=== PATIENT | female | born 1965 | race African-American/Black ===

== ENCOUNTER 2025-07-17 09:30 | Inpatient (IN) | payer SELFPAY ==
[~2025-07-17] VITALS: Ht 170.2 cm; Wt 65.0 kg
--- NOTE | 2025-07-17 12:31 | ED.PDOC ---
History of Present Illness HPI Comments 59-year-old female presents to the ER with prior medical history of diabetes neuropathy and a chief complaint of lower extremity numbness. Patient reports on having increased numbness on her feet with a wound on her left thigh of no drain for one week, in his ambulatory. Patient notes the she has been waking up with a headache recently and also has a lump on the right side of her neck. Patient has a social history of marijuana use. Denies chills, fever, N/V/D, SOB, CP. No other associated symptoms, modifiers, recent injuries or sick contacts present at this time. Chief Complaint: Lower Extremity Time Seen by MD: 11:50 Reviewed Notes: Nurses Notes, Medications, Allergies Allergies: Coded Allergies: Enalapril (Verified Allergy, Mild, 07/17/25) Information Source: Patient Mode of Arrival: Ambulatory Severity: Moderate Timing: Came on: Gradually Duration: Since onset Prehospital treatment: None Past Medical History PAST MEDICAL HISTORY: DM Past Medical History (Other): Neuropathy Surgical History: Denies all surgeries Family History Family History: Reviewed,noncontributory to illness, Unknown Social History Smoker: Non-Smoker Alcohol: Denies ETOH Use Drugs: Denies Drug Use Lives In: Home Constitutional: reports: others (Increased numbness on her bilateral feet come to the left thigh); denies: chills, diaphoresis, fatigue, fever, malaise, sweats, weakness EENTM: denies: blurred vision, double vision, ear bleeding, ear discharge, ear drainage, ear pain, ear ringing, eye pain, eye redness, hearing loss, mouth pain, mouth swelling, nasal discharge, nose bleeding, nose congestion, nose pain, photophobia, tearing, throat pain, throat swelling, voice changes, others Respiratory: denies: cough, hemoptysis, orthopnea, SOB at rest, shortness of breath, SOB with excertion, stridor, wheezing, others Cardiovascular: denies: chest pain, dizzy spells, diaphoresis, Dyspnea on exertion, edema, irregular heart beat, left arm pain, lightheadedness, palpitations, PND, syncope, others Gastrointestinal: denies: abdomen distended, abdominal pain, blood streaked bowels, constipated, diarrhea, dysphagia, difficulty swallowing, hematemesis, melena, nausea, poor appetite, poor fluid intake, rectal bleeding, rectal pain, vomiting, others Genitourinary: denies: abnormal vagina bleeding, burning, dyspareunia, dysuria, flank pain, frequency, hematuria, incontinence, pain, , vagina d ischarge, urgency, others Neurological: reports: headache; denies: dizziness, fainting, left sided numbness, left sided weakness, numbness, paresthesia, pre-existing deficit, right sided numbness, right sided weakness, seizure, speech problems, tingling, tremors, weakness, others Musculoskeletal: denies: back pain, gout, joint pain, joint swelling, muscle pain, muscle stiffness, neck pain, others Integumetry: denies: bruises, change in color, change in hair/nails, dryness, laceration, lesions, lumps, rash, wounds, others Allergic/Immunocompromised: denies: Difficulty Healing, Frequent Infections, Hives, Itching, others Hematologic/Lymphatic: denies: anemia, blood clots, easy bleeding, easy bruising, swollen glands, others Endocrine: denies: excessive hunger, excessive sweating, excessive thirst, excessive urination, flushing, intolerance to cold, intolerance to heat, unexplained weight gain, unexplained weight loss, others Psychiatric: denies: anxiety, bipolar disorder, depression, hopeless, panic disorder, schizophrenia, sleepless, suicidal, others All Other Systems: Reviewed and Negative Physical Exam General Appearance: Moderate Distress, Normal HEENT: Normal ENT Inspection, Pharynx Normal, TMs Normal Neck: Full Range of Motion, Non-Tender, Normal, Normal Inspection Respiratory: Chest Non-Tender, Lungs Clear, No Accessory Muscle Use, No Respi ratory Distress, Normal Breath Sounds Cardiovascular: No Edema, No JVD, No Murmur, No Gallop, Normal Peripheral Pulses, Regular Rate/Rhythm Breast Exam: Deferred Gastrointestinal: No Organomegaly, Non Tender, No Pulsatile Mass, Normal Bowel Sounds, Soft Genitalia: Deferred Pelvic: Deferred Rectal: Deferred Extremities: No calf tenderness, Normal capillary refill, Normal inspection, Normal range of motion, Non-tender, No pedal edema Musculoskeletal : Apperance: Normal Neurologic: Alert, hog ringer II-XII nml as Tested, No Motor Deficits, Normal Affect, Normal Mood, No Sensory Deficits Cerebellar Function: Normal Reflexes: Normal Skin: Dry, Normal Color, Warm Peripheral Pulses: 3+ Radial (R), 3+ Radial (L) Lymphatic: No Adenopathy Was a procedure done? Was a procedure done?: No Differential Dx Considerations may include: Anemia Electrolyte imbalance X-Ray, Labs, Meds, VS Vital Signs Date Time Temp Pulse Resp B/P (MAP) Pulse Ox O2 Delivery O2 Flow Rate FiO2 07/17/25 14:48 98.0 73 17 158/82 (107) 97 98.0 07/17/25 14:48 73 17 97 Room Air 07/17/25 09:31 97.3 65 14 147/90 97 97.3 Lab Test 07/17/25 13:44 07/17/25 12:55 Range/Units Urine Color Light-yellow Yellow Urine Clarity Clear Clear Urine pH 6.0 5.0-9.0 Urine Specific [place] 1.014 1.001-1.035 Urine Protein 2+ H Negative Urine Ketones Negative Negative Urine Blood Trace H Negative /uL Urine Nitrite Negative Negative Urine Bilirubin Negative Negative Urine Urobilinogen Normal Negative mg/dL Urine Leukocyte Esterase 2+ Negative /uL Urine RBC 3 0 - 4 /hpf Urine Microscopic WBC 9 H 0-5 /HPF Urine Squamous Epithelial Cells Few <5 /hpf Urine Bacteria Few H None Seen /hpf Urine Glucose Normal Normal mg/dL White Blood Count 4.9 4.4-10.8 10^3/uL Red Blood Count 4.36 4.0-5.20 10^6/uL Hemoglobin 14.2 12.2-16.2 g/dL Hematocrit 42.3 36.0-46.0 % Mean Corpuscular Volume 97.1 80.0-100.0 fL Mean Corpuscular Hemoglobin 32.6 H 28.0-32.0 pg Mean Corpuscular Hemoglobin Concent 33.6 32.0-36.0 g/dL Red Cell Distribution Width 13.7 11.8-14.3 % Platelet Count 222 140-450 10^3/uL Mean Platelet Volume 7.8 6.9-10.8 fL Neutrophils (%) (Auto) 41.1 37.0-80.0 % Lymphocytes (%) (Auto) 40.7 10.0-50.0 % Monocytes (%) (Auto) 15.0 H 0.0-12.0 % Eosinophils (%) (Auto) 2.8 0.0-7.0 % Basophils (%) (Auto) 0.4 0.0-2.0 % Neutrophils # (Auto) 2.0 1.6-8.6 10 ^3/uL Lymphocytes # (Auto) 2.0 0.4-5.4 10 ^3/uL Monocytes # (Auto) 0.7 0-1.3 10 ^3/uL Eosinophils # (Auto) 0.1 0-0.8 10 ^3/uL Basophils # (Auto) 0 0-0.2 10 ^3/uL Nucleated Red Blood Cells 0.2 % Sodium Level 144 136-145 mmol/L Potassium Level 4.2 3.5-5.1 mmol/L Chloride Level 108 H 98-107 mmol/L Carbon Dioxide Level 27 20-31 mmol/L Anion Gap 9 5-15 Blood Urea Nitrogen 25 H 9-23 mg/dL Creatinine 1.51 H 0.550-1.02 mg/dL Glomerular Filtration Rate Calc 40 >90 mL/min BUN/Creatinine Ratio 16.6 10.0-20.0 Serum Glucose 138 H 74-106 mg/dL Calcium Level 9.7 8.7-10.4 mg/dL Troponin I High Sensitivity 63 *H </=34 ng/L Patient alert. Complaining of numbness tingling. Cardiac marker elevated. Vitals stable. Answering questions. Blood sugar slightly elevated. Was given Lovenox. Urinalysis shows UTI. Blood pressure elevated. Risk factors for coronary artery disease. Echocardiogram. Cardiac consultation. Explained to the patient. Continue monitoring. Time of 1ST Reevaluation: 12:20 Reevaluation 1ST: Unchanged Patient Education/Counseling: Diagnosis, Treatment, Prognosis Family Education/Counseling: No Family Present SEPSIS Sepsis Screen Date sepsis recognized/suspect: Jul 17, 2025 Time Sepsis recognized/suspect: 932 Recent Procedure: No Respiratory Rate >20: No Heart Rate >90: No Temp<36 C (96.8 F) or >38.3 C: No SBP <90 or MAP <65 mmHG: No New Acute Mental Status Change: No Is the patient on CPAP, BIPAP,: No Vital Signs Date Time Temp Pulse Resp B/P (MAP) Pulse Ox O2 Delivery O2 Flow Rate FiO2 07/17/25 14:48 98.0 73 17 158/82 (107) 97 98.0 07/17/25 14:48 73 17 97 Room Air 07/17/25 09:31 97.3 65 14 147/90 97 97.3 Laboratory Tests Test 07/17/25 12:55 White Blood Count 4.9 10^3/uL (4.4-10.8) Departure 1 Departure Time of Disposition: 17:31 Impression: Primary Impression: Uncontrolled diabetes mellitus Qualified Codes: E13.65 - Other specified diabetes mellitus with hyperglycemia Additional Impressions: Hypertensive urgency Demand ischemia Urinary tract infection Qualified Codes: N30.00 - Acute cystitis without hematuria Disposition: ADMITTED INPATIENT Admit to: Med Surg Condition: Guarded Critical Care Note Critical Care Time?: No Stability Stability form required: No Heart Score Heart Score: Heart Score Response (Comments) Value History Slightly Suspicious 0 EKG Normal 0 Age 45-64 1 Risk Factors >3 or Hx ASHD 2 Troponin 1-2 x's Normal limit 1 Total 4 I personally scribed for DIMITRIOS TORRES MD ([email or web address]) on 07/17/25 at 12:31. Electronically submitted by Familia Alvarado ([email or web address]). DIMITRIOS TORRES MD Jul 17, 2025 12:31
[2025-07-17 13:06] LABS: Hematocrit 42.3 % (36.0-46.0); Hemoglobin 14.2 g/dL (12.2-16.2); Mean Corpuscular Hemoglobin 32.6 pg (28.0-32.0); Mean Corpuscular Volume 97.1 fL (80.0-100.0); Nucleated Red Blood Cells % 0.2 %
[2025-07-17 13:13] LABS: Potassium 4.2 mmol/L (3.5-5.1); Sodium 144 mmol/L (136-145)
[2025-07-17 13:14] LABS: Anion Gap 9 (5-15); Carbon Dioxide 27 mmol/L (20-31)
[2025-07-17 13:15] LABS: Calcium 9.7 mg/dL (8.7-10.4)
[2025-07-17 13:19] LABS: BUN/Creatinine Ratio 16.6 (10.0-20.0); Chloride 108 mmol/L (98-107)
[2025-07-17 13:21] LABS: Blood Urea Nitrogen 25 mg/dL (9-23); Glucose 138 mg/dL (74-106)
[2025-07-17 14:13] LABS: Urine Protein, UAD 2+ (Negative)
[2025-07-17] MEDS: InsuLIN REG 1unit/0.01ml Soln (100units/ml) IV ONE (17:45)
[2025-07-17] MEDS: SODIUM CHLORIDE 0.9% 1,000 ML IV ONE ×2 (17:45)
[2025-07-17] MEDS: cefTRIAXone 1GM/50ML D5W 50 ML IV ONE (17:45)
[2025-07-17] MEDS ORDERED: ACETAMINOPHEN 325 MG TAB PO PRN (23:00)
[2025-07-17] MEDS ORDERED: DEXTROSE (50%) 50ML SYRG IV PRN (23:00)
--- NOTE | 2025-07-17 23:13 | DVHHP2 ---
History of Present Illness History of Present Illness This is a 59-year-old female with a past medical history of type 2 diabetes and diabetic neuropathy, HTN, HLD who presents to the Emergency Department with a chief complaint of lower extremity numbness for 2 years. The patient reports progressively worsening numbness in both feet over the past week, along with a wound on her left thigh which is any history daily red, swollen, painful, local raise of temperature but shown no drainage and decreases size. She is ambulatory and reports moderate severity of symptoms. Her social history is notable for marijuana use. She denies chills, fever, nausea, vomiting, diarrhea, shortness of breath, chest pain, or other associated symptoms. There are no recent injuries, sick contacts, or symptom modifiers. No prehospital treatment was administered. Patient also stated increased frequency of micturition recently but no dysuria, hematuria or lower abdominal pain. Patient heparin never seen by director of employer services. Past Medical History (Other): Neuropathy, type 2 diabetes mellitus, HTN, HLD, x 03 Surgical History: x 03, cholecystectomy Family History: CAD-mother Smoker: No cigarette smoking, smokes marijuana occasionally and last smoked yesterday Alcohol: Denies ETOH Use Drugs: Denies Drug Use Lives In: Home PCP: Not selected Allergy: Enalapril Review of Systems Constitutional: Yes: Malaise; No: Fever, Chills, Sweats, Weakness, Other Eyes: No: Pain, Vision change, Conjunctivae inflammation, Eyelid inflammation, Other, Redness ENT: No: Ear pain, Ear discharge, Nose pain, Nose discharge, Nose congestion, Mouth pain, Mouth swelling, Throat pain, Throat swelling, Other Respiratory: No: Cough, Dry, Shortness of breath, SOB with excertion, Wheezing, Hemoptysis, Pleuritic Pain, Sputum, Wheezing, Other Cardiovascular: No: Chest Pain, Palpitations, Orthopnea, Paroxysmal Noc. Dyspnea, Edema, Lt Headedness, Other Gastrointestinal: No: Nausea, Vomiting, Abdominal Pain, Diarrhea, Constipation, Melena, Hematochezia, Other Genitourinary: No Dysuria, No Frequency, No Incontinence, No Hematuria, No Retention, No Other Musculoskeletal: No: other, neck pain, shoulder pain, arm pain, back pain, hand pain, leg pain, foot pain Skin: Other (Swelling front of left thigh); No: Rash, Lesions, Jaundice, Bruising Neurological: Other (Tingling sensation bilateral lower extremity); No: Weakness, Numbness, Incoordination, Change in speech, Confusion, Seizures Allergies: Coded Allergies: Enalapril (Verified Allergy, Mild, 07/17/25) Medications Current Medications Medications Dose Ordered Sig/Noah Route Start Time Stop Time Status Last Admin Dose Admin Acetaminophen 650 mg Q6HP PRN PO 07/17/25 23:00 Gabapentin 300 mg DAILY PO 07/18/25 10:00 Diagnostic Test (Pha) 1 strip ACHS 07/18/25 07:00 Insulin Human Regular ACHS SC 07/18/25 07:00 Dextrose 50 ml UD PRN IV 07/17/25 23:00 Atorvastatin Calcium 20 mg HS PO 07/18/25 22:00 Ceftriaxone Sodium 50 ml @ 100 mls/hr Q24H IV 07/18/25 21:00 Sodium Chloride 1,000 ml @ 100 mls/hr Q10H IV 07/17/25 23:00 Exam Vital Signs Vital Signs Date Time Temp Pulse Resp B/P (MAP) Pulse Ox O2 Delivery O2 Flow Rate FiO2 07/17/25 22:00 59 12 129/63 (85) 96 07/17/25 19:30 97.9 97.9 07/17/25 14:48 Room Air General Appearance: Oriented X3, Cooperative, mild distress HEENT: Atraumatic, PERRLA, EOMI Respiratory: Clear to auscultation, Normal air movement Cardiovascular: Regular rate, Normal S1, Normal S2 Abdominal: Normal bowel sounds, Soft, No tenderness Extremities: No clubbing, No cyanosis, No edema, Normal pulses, No tenderness/swelling Skin: No rashes, No breakdown Neuro: Normal gait, Normal speech, Strength at 5/5 X4 ext, Normal tone, Other (Sensation decreased bilateral lower extremity) Labs/Xrays Labs Test 07/17/25 18:57 07/17/25 13:44 07/17/25 12:55 Range/Units POC Glucose 113 H 70-106 mg/dl Urine Color Light-yellow Yellow Urine Clarity Clear Clear Urine pH 6.0 5.0-9.0 Urine Specific [place] 1.014 1.001-1.035 Urine Protein 2+ H Negative Urine Ketones Negative Negative Urine Blood Trace H Negative /uL Urine Nitrite Negative Negative Urine Bilirubin Negative Negative Urine Urobilinogen Normal Negative mg/dL Urine Leukocyte Esterase 2+ Negative /uL Urine RBC 3 0 - 4 /hpf Urine Microscopic WBC 9 H 0-5 /HPF Urine Squamous Epithelial Cells Few <5 /hpf Urine Bacteria Few H None Seen /hpf Urine Glucose Normal Normal mg/dL White Blood Count 4.9 4.4-10.8 10^3/uL Red Blood Count 4.36 4.0-5.20 10^6/uL Hemoglobin 14.2 12.2-16.2 g/dL Hematocrit 42.3 36.0-46.0 % Mean Corpuscular Volume 97.1 80.0-100.0 fL Mean Corpuscular Hemoglobin 32.6 H 28.0-32.0 pg Mean Corpuscular Hemoglobin Concent 33.6 32.0-36.0 g/dL Red Cell Distribution Width 13.7 11.8-14.3 % Platelet Count 222 140-450 10^3/uL Mean Platelet Volume 7.8 6.9-10.8 fL Neutrophils (%) (Auto) 41.1 37.0-80.0 % Lymphocytes (%) (Auto) 40.7 10.0-50.0 % Monocytes (%) (Auto) 15.0 H 0.0-12.0 % Eosinophils (%) (Auto) 2.8 0.0-7.0 % Basophils (%) (Auto) 0.4 0.0-2.0 % Neutrophils # (Auto) 2.0 1.6-8.6 10 ^3/uL Lymphocytes # (Auto) 2.0 0.4-5.4 10 ^3/uL Monocytes # (Auto) 0.7 0-1.3 10 ^3/uL Eosinophils # (Auto) 0.1 0-0.8 10 ^3/uL Basophils # (Auto) 0 0-0.2 10 ^3/uL Nucleated Red Blood Cells 0.2 % Sodium Level 144 136-145 mmol/L Potassium Level 4.2 3.5-5.1 mmol/L Chloride Level 108 H 98-107 mmol/L Carbon Dioxide Level 27 20-31 mmol/L Anion Gap 9 5-15 Blood Urea Nitrogen 25 H 9-23 mg/dL Creatinine 1.51 H 0.550-1.02 mg/dL Glomerular Filtration Rate Calc 40 >90 mL/min BUN/Creatinine Ratio 16.6 10.0-20.0 Serum Glucose 138 H 74-106 mg/dL Calcium Level 9.7 8.7-10.4 mg/dL Troponin I High Sensitivity 63 *H </=34 ng/L SEPSIS Sepsis Screen Date sepsis recognized/suspect: Jul 17, 2025 Time Sepsis recognized/suspect: 932 Recent Procedure: No Respiratory Rate >20: No Heart Rate >90: No Temp<36 C (96.8 F) or >38.3 C: No SBP <90 or MAP <65 mmHG: No New Acute Mental Status Change: No Is the patient on CPAP, BIPAP,: No Physician Orders Sodium Chloride 0.9% (07/17/25 17:45) Admit (07/17/25 22:50) Code Status (07/17/25 22:50) Acetaminophen Tablet (Tylenol Tablet) (07/17/25 23:00) Notify Md Of Changes From Base (07/17/25 22:50) Gabapentin Capsule (Neurontin Capsule) (07/18/25 10:00) Glucose Blood (Accu-Chek Comfort Curve T (07/18/25 07:00) Insulin R (Human) (Insulin R) (07/18/25 07:00) Dextrose 50% Syringe (07/17/25 23:00) Atorvastatin (Lipitor) (07/18/25 22:00) Ceftriaxone 1gm/50ml D5w (Rocephin) (07/18/25 21:00) Sodium Chloride 0.9% (07/17/25 23:00) Consistent Carb(Ccho)Diabetes (07/18/25 Breakfast) Troponin-I Hs (07/17/25 23:03) Troponin-I Hs (07/18/25 00:03) Troponin-I Hs (07/18/25 02:03) Vital Signs Date Time Temp Pulse Resp B/P (MAP) Pulse Ox O2 Delivery O2 Flow Rate FiO2 07/17/25 22:00 59 12 129/63 (85) 96 07/17/25 20:00 55 07/17/25 19:30 175/96 07/17/25 19:30 97.9 66 14 175/96 (122) 99 97.9 07/17/25 18:30 97.8 69 18 186/94 (124) 97 97.8 07/17/25 17:45 186/94 Laboratory Tests Test 07/17/25 12:55 White Blood Count 4.9 10^3/uL (4.4-10.8) Medications Medications Dose Ordered Sig/Noah Route Start Time Stop Time Status Last Admin Dose Admin Ceftriaxone Sodium 50 ml @ 100 mls/hr ONCE ONCE IV 07/17/25 17:45 07/17/25 18:14 DC 07/17/25 17:45 100 MLS/HR Clonidine HCl 0.2 mg ONCE ONCE PO 07/17/25 17:45 07/17/25 17:46 DC 07/17/25 17:45 0.2 MG Sodium Chloride 1,000 ml @ 150 mls/hr Q6H40M ONCE IV 07/17/25 17:45 07/18/25 00:24 07/17/25 17:45 150 MLS/HR Sodium Chloride 1,000 ml @ 1,000 mls/hr Q1H ONCE IV 07/17/25 17:45 07/17/25 18:44 DC 07/17/25 17:45 1,000 MLS/HR Assessment/Plan Assessment/Plan UNCONTROLLED TYPE 2 DIABETES MELLITUS WITH HYPERGLYCEMIA AND DIABETIC NEUROPATHY Patient came with lower extremity tingling sensation, increased frequency of micturition In ER, received regular insulin, NSS, ceftriaxone CMP blood glucose shows 138 Gabapentin 300 mg p.o. daily Insulin sliding scale Metformin 1000 b.i.d. home medicine Monitor blood sugar Hemoglobin A1c ordered Vitamin B12, vitamin-D, TSH NSS 100 cc/hour Urinary tract infection UA shows blood trace, leukocyte esterase 2+, WBC 9, bacteria few NSS 100 cc/hour ceftriaxone 1 g IV daily CLAU due to vasomotor nephropathy serum creatinine 1.51, unknown baseline NSS 100 cc/hour avoid nephrotoxic drugs BNP will follow Hypertensive nephropathy HOME MEDICATION LOSARTAN HCTZ IT 100- 12.5 MG P.O. DAILY Hold for now due to CLAU Will resume a.m. team after left CVA Peripheral neuropathy gabapentin 600 mg p.o. as needed, home medicine start gabapentin 300 mg p.o. daily Mixed hyperlipidemia atorvastatin 20 mg p.o. daily lipid profile TYPE 2 NM DUE TO DEMAND ISCHEMIA Troponin level 63> 53> 59> 55 Diet: Diabetic diet GI prophylaxis: Pantoprazole 40 mg p.o. daily DVT prophylaxis: Heparin 56952 units sc q.12h Goals of care discussions, more than 29 minute spent With patient ,full code status. Case discussed with Dr. Will. Plan discussed with: Patient, Other (Nurse) My Orders Orders - LORRIE DAY Procedure Category Date Status Time Admit ADMIT 07/17/25 Transmitted 22:50 Code Status CODE 07/17/25 Transmitted 22:50 Acetaminophen Tablet PHA 07/17/25 In Process (Tylenol Tablet) 23:00 Notify Of Changes NEREYDA 07/17/25 In Process From Base 22:50 Gabapentin Capsule PHA 07/18/25 In Process (Neurontin Capsule) 10:00 Glucose Blood PHA 07/18/25 In Process (Accu-Chek Comfort 07:00 Insulin R (Human) PHA 07/18/25 In Process (Insulin R) 07:00 Dextrose 50% Syringe PHA 07/17/25 In Process 23:00 Atorvastatin (Lipitor) PHA 07/18/25 In Process 22:00 Ceftriaxone 1gm/50ml PHA 07/18/25 In Process D5w (Rocephin) 21:00 Sodium Chloride 0.9% PHA 07/17/25 In Process 23:00 Consistent DIET 07/18/25 Transmitted Carb(Ccho)Diabetes Breakfast Troponin-I Hs LAB 07/17/25 Logged 23:03 Troponin-I Hs LAB 07/18/25 Verified 00:03 Troponin-I Hs LAB 07/18/25 Verified 02:03 Date of Service: Jul 17, 2025 Billing Provider: ILYA WILL MD Common Visit Codes: [id number] INP/OBS CARE (HIGH) Secondary Visit Codes: [id number] CARE PLAN 30 MINUTES LORRIE DAY Jul 17, 2025 23:13
[2025-07-17] MEDS: SODIUM CHLORIDE 0.9% 1,000 ML IV SCH (23:18)
[2025-07-18] MEDS: InsuLIN REG 1unit/0.01ml Soln (100units/ml) SC SCH (07:00)
[2025-07-18] MEDS: ACCU-CHEK COMFORT CURVE STRIP VI SCH (07:07)
[2025-07-18 07:19] LABS: Alanine Aminotransferase 14 U/L (7-40); Albumin 4.2 g/dL (3.2-4.8); Anion Gap 12 (5-15); BUN/Creatinine Ratio 13.4 (10.0-20.0); Blood Urea Nitrogen 18 mg/dL (9-23); Calcium 9.0 mg/dL (8.7-10.4); Carbon Dioxide 24 mmol/L (20-31); Cholesterol 139 mg/dL (< 200); Potassium 4.1 mmol/L (3.5-5.1); Total Protein 6.4 g/dL (5.7-8.2)
[2025-07-18 07:22] LABS: Alkaline Phosphatase 45 U/L (46-116); Bilirubin, Total 0.3 mg/dL (0.2-1.0); Chloride 109 mmol/L (98-107); Glucose 142 mg/dL (74-106); HDL Cholesterol 32 mg/dL (40-59); Sodium 145 mmol/L (136-145); Triglycerides 178 mg/dL (< 150)
[2025-07-18 08:00] VITALS: BP 127/85; PULSE 62; RESP 19; TEMP 97.9; O2SAT 98
[2025-07-18] MEDS: HEPARIN SODIUM (PORCINE) 5000 UNITS/ML 1ML VIAL SC SCH (10:00)
[2025-07-18] MEDS: GABAPENTIN 300 MG CAP PO SCH (10:00)
[2025-07-18] MEDS ORDERED: levoFLOXacin 500 MG TAB PO ONE (12:15)
--- NOTE | 2025-07-18 16:09 | DVHDSRES ---
Discharge Summary Date of Admission Resident Creating Document: DEJAN BURGESS RESIDENT Jul 17, 2025 at 22:50 Date of Discharge: Jul 18, 2025 Labs/Diagnostic Data: Laboratory Results Test 07/18/25 11:05 07/18/25 10:43 07/18/25 02:26 07/17/25 13:44 POC Glucose 139 mg/dl (70-106) Hemoglobin A1c 7.2 % A1C (<5.7) Vitamin B12 Level 738 pg/mL (211-911) Vitamin D 25-Hydroxy 17.8 ng/mL (30.0-100) Sodium Level 145 mmol/L (136-145) Potassium Level 4.1 mmol/L (3.5-5.1) Chloride Level 109 mmol/L (98-107) Carbon Dioxide Level 24 mmol/L (20-31) Anion Gap 12 (5-15) Blood Urea Nitrogen 18 mg/dL (9-23) Creatinine 1.34 mg/dL (0.550-1.02) Glomerular Filtration Rate Calc 46 mL/min (>90) BUN/Creatinine Ratio 13.4 (10.0-20.0) Serum Glucose 142 mg/dL (74-106) Calcium Level 9.0 mg/dL (8.7-10.4) Total Bilirubin 0.3 mg/dL (0.2-1.0) Aspartate Amino Transferase (AST) 20 U/L (13-40) Alanine Aminotransferase (ALT) 14 U/L (7-40) Alkaline Phosphatase 45 U/L (46-116) Troponin I High Sensitivity 55 ng/L (</=34) Total Protein 6.4 g/dL (5.7-8.2) Albumin 4.2 g/dL (3.2-4.8) Triglycerides Level 178 mg/dL (< 150) Cholesterol Level 139 mg/dL (< 200) LDL Cholesterol 77 mg/dL (< 100) HDL Cholesterol 32 mg/dL (40-59) Thyroid Stimulating Hormone (TSH) 1.94 uIU/mL (0.55-4.78) Urine Color Light-yellow (Yellow) Urine Clarity Clear (Clear) Urine pH 6.0 (5.0-9.0) Urine Specific Universal 1.014 (1.001-1.035) Urine Protein 2+ (Negative) Urine Ketones Negative (Negative) Urine Blood Trace /uL (Negative) Urine Nitrite Negative (Negative) Urine Bilirubin Negative (Negative) Urine Urobilinogen Normal mg/dL (Negative) Urine Leukocyte Esterase 2+ /uL (Negative) Urine RBC 3 /hpf (0 - 4) Urine Microscopic WBC 9 /HPF (0-5) Urine Squamous Epithelial Cells Few /hpf (<5) Urine Bacteria Few /hpf (None Seen) Urine Glucose Normal mg/dL (Normal) Test 07/17/25 12:55 White Blood Count 4.9 10^3/uL (4.4-10.8) Red Blood Count 4.36 10^6/uL (4.0-5.20) Hemoglobin 14.2 g/dL (12.2-16.2) Hematocrit 42.3 % (36.0-46.0) Mean Corpuscular Volume 97.1 fL (80.0-100.0) Mean Corpuscular Hemoglobin 32.6 pg (28.0-32.0) Mean Corpuscular Hemoglobin Concent 33.6 g/dL (32.0-36.0) Red Cell Distribution Width 13.7 % (11.8-14.3) Platelet Count 222 10^3/uL (140-450) Mean Platelet Volume 7.8 fL (6.9-10.8) Neutrophils (%) (Auto) 41.1 % (37.0-80.0) Lymphocytes (%) (Auto) 40.7 % (10.0-50.0) Monocytes (%) (Auto) 15.0 % (0.0-12.0) Eosinophils (%) (Auto) 2.8 % (0.0-7.0) Basophils (%) (Auto) 0.4 % (0.0-2.0) Neutrophils # (Auto) 2.0 10 ^3/uL (1.6-8.6) Lymphocytes # (Auto) 2.0 10 ^3/uL (0.4-5.4) Monocytes # (Auto) 0.7 10 ^3/uL (0-1.3) Eosinophils # (Auto) 0.1 10 ^3/uL (0-0.8) Basophils # (Auto) 0 10 ^3/uL (0-0.2) Nucleated Red Blood Cells 0.2 % Other Laboratory Tests 07/18/25 02:26 07/17/25 12:55 Brief Hx & Hospital Course: Brief history on admission: Mary Joy is a 59-year-old female with a past medical history of type 2 diabetes and diabetic neuropathy, HTN, HLD who presents to the ER with a chief complaint of left flank pain and lower extremity numbness. Pain is weak, achy, 8 on 10, in left flank area, increases with micturition. She complained of neuropathy, increasing pain, burning, tingling sensation since 2 years, worsening since last month. The patient reports progressively worsening numbness in both feet over the past week, along with a wound on her left thigh which is any history daily red, swollen, painful, local raise of temperature but shown no drainage and decreases size. She is ambulatory and reports moderate severity of symptoms. Her social history is notable for marijuana use. She denies chills, fever, nausea, vomiting, diarrhea, shortness of breath, chest pain, or other associated symptoms. There are no recent injuries, sick contacts, or symptom modifiers. No prehospital treatment was administered. She also stated increased frequency of micturition recently but no dysuria, hematuria or lower abdominal pain. She was never seen by banquet captain. Hospital course: She was admitted along the lines of worsening neuropathy and UTI. Initial labs were positive for UTI, acute kidney injury. She was started on IV fluids, antibiotics, pain management. Her home medications were reconciled. While she was undergoing further evaluation and management, she stated that she want to leave AMA the patient was explained the advantages of staying and disadvantages of leaving AMA. On multiple occasions, the patient showed understanding of the situation and refused treatment. She eventually signed the AMA document. Conditions treated during hospital stay: Complicated UTI, possible Uncontrolled type 2 diabetes mellitus Diabetic neuropathy CLAU on CKD, possible due to VMN Hypertensive nephropathy Hypotensive neuropathy Hyper lipidemia Type 2 NSTEMI, likely due to acute kidney injury Condition at Discharge: Undetermined Final Diagnosis/Problems List Complicated UTI, possible Uncontrolled type 2 diabetes mellitus Diabetic neuropathy CLAU on CKD, possible due to VMN Hypertensive nephropathy Hypotensive neuropathy Hyper lipidemia Type 2 NSTEMI, likely due to acute kidney injury Discharge Disposition: AMA Discharge Statement: "Patient was advised to return to the ER or call 911 if any headaches, dizziness, shortness of breath, chest pain, abdominal pain, bleeding, fevers, or worsening of medical condition. Patient was counseled about treatment plan, medications, possible side effects, patientverbalized understanding. All questions were answered to the best of my ability. This discharge took greater then 30 minutes in planning, reviewing documentation, counseling the patient, and discussing with other team members." ASSESSMENT ASSESSMENT Assessment DEJAN BURGESS RESIDENT Jul 18, 2025 16:09
[2025-07-18] MEDS ORDERED: cefTRIAXone 1GM/50ML D5W 50 ML IV SCH (21:00)
[2025-07-18] MEDS ORDERED: ATORVASTATIN 20 MG TAB PO SCH (22:00)
[2025-07-19] MEDS ORDERED: levoFLOXacin 500 MG TAB PO SCH (10:00)
== END 2025-07-18 12:22 | disposition left against medical advice (07) | DRG 73 ==
LOC: ER 09:30 → OVERFLOW 22:50
PROVIDERS: ADMIT Student in an Organized Health Care Education/Training Program; ATTEND Student in an Organized Health Care Education/Training Program
DX: E11.40 Type 2 diabetes mellitus with diabetic neuropathy, unspecified (principal); I21.A1 Myocardial infarction type 2; N17.0 Acute kidney failure with tubular necrosis; N39.0 Urinary tract infection, site not specified; E11.65 Type 2 diabetes mellitus with hyperglycemia; I16.0 Hypertensive urgency; E78.2 Mixed hyperlipidemia; I12.9 Hypertensive chronic kidney disease with stage 1 through stage 4 chronic kidney disease, or unspecified chronic kidney disease; E11.22 Type 2 diabetes mellitus with diabetic chronic kidney disease; N18.9 Chronic kidney disease, unspecified; Z79.84 Long term (current) use of oral hypoglycemic drugs; Z79.899 Other long term (current) drug therapy; Z82.49 Family history of ischemic heart disease and other diseases of the circulatory system; Z53.29 Procedure and treatment not carried out because of patient's decision for other reasons
CPT/HCPCS: 36415; 80048; 80053; 80061; 81001; 82306; 82607; 82962; 83036; 84443; 84484; 85025; 96365; G0378